=== PATIENT | male | born 1960 | race Caucasian/White ===

== ENCOUNTER → 2018-10-08 13:20 | Outpatient (CLI) | payer MEDICARE, MEDICAID, SELFPAY ==
--- NOTE | 2018-10-08 13:25 | XR_ITS ---
XR DEXA axial skeleton HISTORY: ITS.REASON: ABNORMAL FINDINGS ON CT SCAN ORDERING PHYSICIAN: Yi Boles PATIENT AGE: 58 years COMPARISON: None FINDINGS: The BMD measured at the Right femoral neck is 1.126 g/cm squared with a T score of 0.4. This is considered Normal according to the World Health Organization criteria. Fracture risk is Low. Recommend follow-up exam in 2 years. IMPRESSION: Normal bone density with low fracture risk
--- NOTE | 2018-10-08 13:54 | MR_ITS ---
MR hip RT wo/w con HISTORY: , Left hip pain and soreness Lytic lesion of the left hip evaluation ITS.REASON: ABNORMAL CT SCAN OF PELVIS ORDERING PHYSICIAN: Yipamella Boles PATIENT AGE: 58 years COMPARISON: 10/02/2018 TECHNIQUE: Routine multiplanar multiecho sequences are performed without and with contrast FINDINGS: Subcortical cystic changes involving the right femoral neck at approximately 11 mm. A small cystic areas also present in the left subcapital region of the femoral neck at 10 mm. In addition, there is a 17 x 17 mm lesion involving the left femoral neck anteriorly corresponding to the CT abnormality. This did appear to contain some internal matrix on CT. There is some heterogeneous signal intensity in this area on the T2-weighted images and the post enhanced images. This is hyperintense on T2 and hypointense on T1. This is well-circumscribed. Cannot adequately determine if this enhances as the T1 fat-suppressed pre enhanced images are also hyperintense as are the T1 post enhanced fat suppressed images. This is not felt to be enhancing significantly. Sagittal images were obtained only of the right hip and not the left hip. No soft tissue masses hip effusions or fractures or dislocations are evident. The prostate is mildly enlarged at 5.8 x 4.7 cm. IMPRESSION: Left femoral neck lytic lesion as described above. The lesion is well-circumscribed. There appears to be some internal matrix. This may represent an enchondroma.. Complex cyst is an additional consideration. There are benign-appearing cystic lesions of the right femoral neck and left femoral head as well. Sagittal images were only performed of the right hip and not the left hip where the main area of concern resides. Would recommend the patient return at no additional charge for repeat sagittal images of the left hip and also pre- and post enhanced NONFAT SAT T1 axial and coronal images to determine if this lesion enhances or not..
--- NOTE | 2018-10-08 15:08 | HMH.ITSHM ---
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 []BABY ASPIRIN TOPIRAMATE FLUOXETINE QUETIAPINE FUMARATE METOPROLOL PRAVASTATIN TAMSULOSIN ISOSORBIDE BUPROPION RANITIDINE LISINOPRIL TRAMADOL GABAPENTIN
== END ==
PROVIDERS: PCP Family Medicine; Visit Provider Nurse Practitioner Family
DX: R93.89 Abnormal findings on diagnostic imaging of other specified body structures (principal); M25.551 Pain in right hip; R93.5 Abnormal findings on diagnostic imaging of other abdominal regions, including retroperitoneum; M89.9 Disorder of bone, unspecified
CPT/HCPCS: 73723; 77080; A9576

== ENCOUNTER → 2018-10-16 09:33 | Outpatient (CLI) | payer MEDICARE, MEDICAID, SELFPAY | PROVIDERS: PCP Nurse Practitioner Family; Visit Provider Nurse Practitioner Family | DX: R93.6 Abnormal findings on diagnostic imaging of limbs (principal) ==

== ENCOUNTER → 2018-11-04 10:07 | Outpatient (CLI) | payer MEDICARE, MEDICAID, SELFPAY ==
--- NOTE | 2018-11-04 10:11 | XR_ITS ---
XR hip RT 2-3V w/pelvis HISTORY: ITS.REASON: Hip pain ORDERING PHYSICIAN: Abbey Núñez MD PATIENT AGE: 58 years COMPARISON: None FINDINGS: There is a 14 mm lobular lucency in the right femoral neck corresponding to the abnormality noted on the MRI and may represent a subcortical cyst. There are mild osteoarthritic changes of the right hip. No fracture or dislocation. IMPRESSION: Bilobular fairly well-circumscribed cystic lesion of the right femoral neck with osteoarthritic change of the right hip
--- NOTE | 2018-11-04 10:11 | XR_ITS ---
XR hip LT 2-3V w/pelvis HISTORY: Left hip pain, left hip lesion ITS.REASON: B/L Hip pain ORDERING PHYSICIAN: Abbey Núñez MD PATIENT AGE: 58 years COMPARISON: 09/22/2018 and 10/08/2018 FINDINGS: Patient has a known lytic lesion of left femoral neck. This is not well circumscribed complaint and disc appear to contain some internal matrix. This measures approximately 2 cm. There is some minimal osteoarthritic change of the left hip IMPRESSION: Left hip lesion is not well-defined on the plain film. To have some internal matrix suggesting a chondromatous type lesion
== END ==
PROVIDERS: PCP Family Medicine; Visit Provider Orthopaedic Surgery
DX: M25.551 Pain in right hip (principal); M25.552 Pain in left hip
CPT/HCPCS: 73502

== ENCOUNTER → 2018-11-05 08:53 | Outpatient (CLI) | payer MEDICARE, MEDICAID, SELFPAY ==
--- NOTE | 2018-11-05 09:01 | NM_ITS ---
NM bone scan whole body CLINICAL INDICATION: Left hip pain, left femoral neck lesion ITS.REASON: ABNORMAL MRI SCAN ORDERING PHYSICIAN: Yi Boles PATIENT AGE: 58 years Comparison: 11/04/2018, 10/08/2018 TECHNIQUE: Delayed Whole-body images are obtained following the intravenous administration of 24.9 mCi technetium MDP. SPECT images are also performed. FINDINGS: There are small foci of slight increase activity involving both femoral necks corresponding to the abnormalities noted on the MRI of the hip. In addition, scattered foci of increased activity are present in the shoulders, sternoclavicular joint, first costosternal joint, right aspect of the lower sternum, and in the knees as well as the lumbar spine at the lumbosacral junction. SPECT images were performed of the pelvis showing a small focal area of increase activity in the left femoral neck corresponding to the bony lesion in question. There is slight increase activity involving the right femoral neck superiorly but less intense as compared to the left side there is increased activity also noted in the SI joints. IMPRESSION: 1. The lesion of the left hip does show mild to moderate increase activity. An enchondroma or low-grade chondrosarcoma is a consideration. Close follow-up is recommended. 2. The lesion of the right hip only shows mild increase activity. This lesion however does show complex properties on the MRI and close follow-up is also recommended.
== END ==
PROVIDERS: PCP Family Medicine; Visit Provider Nurse Practitioner Family
DX: R93.7 Abnormal findings on diagnostic imaging of other parts of musculoskeletal system (principal)
CPT/HCPCS: 78306; A9503

== ENCOUNTER → 2019-08-02 13:14 | Outpatient (POV) | payer MEDICARE, MEDICAID, SELFPAY | PROVIDERS: PCP Nurse Practitioner Family; Visit Provider Nurse Practitioner Family | DX: Z00.00 Encounter for general adult medical examination without abnormal findings (principal) ==

== ENCOUNTER → 2022-12-11 23:30 | Outpatient (CLI) | payer MEDICARE, MEDICAID, SELFPAY ==
[2022-12-11 17:26] LABS: Alanine Aminotransferase 28 U/L (12-78); Albumin Level 3.9 g/dl (3.5-5.0); Albumin/Globulin Ratio 1.4 (1.1-1.8); Alkaline Phosphatase 78 U/L (38-126); Anion Gap 5.6 mEq/L (5-15); Aspartate Amino Transferase 30 U/L (17-59); Bilirubin,Total 0.4 mg/dl (0.2-1.3); Blood Urea Nitrogen 20 mg/dl (9-20); Calcium 8.8 mg/dl (8.4-10.2); Carbon Dioxide 27 mmol/L (22.0-30.0); Chloride 110 mmol/L (98-107); Chol/HDL Ratio 4.6 (1-3.5); Cholesterol 208 mg/dl (140-200); Estimated Glomerular Filt Rate 47 ml/min (>60); GFR (African American) 57 ML/MIN (>60); Globulin 2.8 g/dL (1.3-3.2); Glucose 95 mg/dl (74-100); HDL Cholesterol 45 mg/dl (40-60); Potassium 4.6 mmoL/L (3.5-5.1); Sodium 138 mmol/L (136-145); Total Protein,Serum 6.7 g/dl (6.3-8.2); Triglycerides 105 mg/dl (30-150); VLDL Cholesterol 21 mg/dL (0-40)
[2022-12-11 17:27] LABS: Basophils # 0.1 K/mm3 (0-0.2); Basophils % 0.8 % (0.1-2.0); Eosinophils # 0.4 K/mm3 (0.0-0.4); Eosinophils % 7.6 % (0.1-12.0); Hematocrit 39.9 % (42.0-52.0); Hemoglobin 12.6 g/dL (14.1-18.0); Lymphocytes # 1.3 K/mm3 (0.7-4.5); Lymphocytes % 21.8 % (10-50); Mean Corpuscular HGB Conc 31.6 g/dL (31.8-35.4); Mean Corpuscular Hemoglobin 28.2 pg (27.0-31.2); Mean Corpuscular Volume 89.3 fl (80-94); Mean Platelet Volume 8.8 fl (7.4-10.4); Monocytes # 0.4 K/mm3 (0.1-1.0); Monocytes % 7.6 % (1.7-9.3); Neutrophils # 3.6 K/mm3 (1.8-7.8); Neutrophils % 62.2 % (37.0-80.0); Platelet Count 342 K/mm3 (142-424); Red Blood Count 4.47 M/mm3 (4.60-6.20); Red Cell Distribution Width 14.3 % (11.5-17.5); White Blood Count 5.7 K/mm3 (4.8-10.8)
[2022-12-11 17:37] LABS: Direct LDL Cholesterol 120.53 mg/dL (100-129)
[2022-12-11 17:56] LABS: Thyroid Stimulating Hormone 3.21 uIU/mL (0.465-4.68)
== END ==
PROVIDERS: PCP Family Medicine; Visit Provider Family Medicine
DX: I10 Essential (primary) hypertension (principal); R53.83 Other fatigue; Z00.00 Encounter for general adult medical examination without abnormal findings; R30.0 Dysuria
CPT/HCPCS: 80053; 80061; 84443; 85025; 87086

== ENCOUNTER 2022-12-24 02:20 | Emergency (ER) | payer MEDICARE, MEDICAID, SELFPAY ==
[2022-12-24 02:31] VITALS: BP 142/71; PULSE 82; RESP 18; TEMP 36.4; O2SAT 98; BMI 48.2
[2022-12-24 02:33] VITALS: BMI 48.2
[2022-12-24 02:48] LABS: Basophils # 0.1 K/mm3 (0-0.2); Basophils % 1.5 % (0.1-2.0); Eosinophils # 0.5 K/mm3 (0.0-0.4); Eosinophils % 6.9 % (0.1-12.0); Hematocrit 40.5 % (42.0-52.0); Hemoglobin 12.8 g/dL (14.1-18.0); Lymphocytes # 2.4 K/mm3 (0.7-4.5); Mean Corpuscular HGB Conc 31.6 g/dL (31.8-35.4); Mean Corpuscular Hemoglobin 27.6 pg (27.0-31.2); Mean Corpuscular Volume 87.6 fl (80-94); Monocytes # 0.5 K/mm3 (0.1-1.0); Neutrophils # 3.1 K/mm3 (1.8-7.8); Neutrophils % 46.6 % (37.0-80.0); Platelet Count 353 K/mm3 (142-424); Red Blood Count 4.63 M/mm3 (4.60-6.20); Red Cell Distribution Width 14.4 % (11.5-17.5); White Blood Count 6.6 K/mm3 (4.8-10.8)
[2022-12-24 02:50] LABS: Alanine Aminotransferase 35 U/L (12-78); Albumin Level 4.4 g/dl (3.5-5.0); Albumin/Globulin Ratio 1.4 (1.1-1.8); Alkaline Phosphatase 77 U/L (38-126); Aspartate Amino Transferase 46 U/L (17-59); Bilirubin,Total 0.3 mg/dl (0.2-1.3); Blood Urea Nitrogen 25 mg/dl (9-20); Calcium 8.6 mg/dl (8.4-10.2); Carbon Dioxide 24 mmol/L (22.0-30.0); Chloride 106 mmol/L (98-107); Creatinine Clearance Estimated 30 mL/min (50-200); Estimated Glomerular Filt Rate 29 ml/min (>60); GFR (African American) 35 ML/MIN (>60); Globulin 3.1 g/dL (1.3-3.2); Glucose 103 mg/dl (74-100); Magnesium 2.1 mg/dl (1.6-2.3); Sodium 137 mmol/L (136-145); Total Protein,Serum 7.5 g/dl (6.3-8.2)
[2022-12-24 02:57] LABS: C-Reactive Protein 3.7 mg/L (0-4)
[2022-12-24 03:00] VITALS: BP 142/69; PULSE 74; O2SAT 97
[2022-12-24 03:02] LABS: NT Pro Brain Natriuretic Pep. 22.8 pg/mL (0-125)
[2022-12-24 03:09] LABS: Procalcitonin 0.054 ng/mL (0.0-2.0)
--- NOTE | 2022-12-24 03:15 | PC.NURSE ---
Rounded on patient, helped with concerns voiced.
[2022-12-24 03:21] LABS: Erythrocyte Sedimentation Rate 22 mm/hr (0-20)
[2022-12-24 03:31] VITALS: BP 132/68; PULSE 82; O2SAT 98
[2022-12-24 04:04] VITALS: BP 130/72; PULSE 78; RESP 19; TEMP 36.6; O2SAT 96
--- NOTE | 2022-12-24 04:19 | HMH.EDGENADL ---
Discharge Plan Disposition Patient Disposition: Home, Self-Care Chief Complaint: PAIN Prescriptions Prescriptions: No Action albuterol sulfate 90 mcg/actuation HFA aerosol inhaler 2 puff IH Q4-6H PRN (Reason: asthma) bupropion HCl [Wellbutrin SR] 150 mg tablet sustained-release 12 hr 150 mg PO BID fluoxetine 40 mg capsule 40 mg PO DAILY omeprazole 20 mg capsule,delayed release(DR/EC) 20 mg PO BID 30 Days Qty: 60 2RF tamsulosin 0.4 mg capsule 0.4 mg PO HS 30 Days Qty: 30 2RF lisinopril 10 mg tablet 10 mg PO BID 30 Days Qty: 60 2RF quetiapine 300 MG tablet 300 mg PO HS aspirin 81 MG tablet,delayed release (DR/EC) 81 mg PO DAILY topiramate 100 mg tablet 100 mg PO BID pravastatin 40 mg tablet 40 mg PO DAILY Rx Instructions: TAKE 1 TABLET BY MOUTH EVERY DAY sulfamethoxazole-trimethoprim [Bactrim DS] 800-160 mg tablet 1 tab PO BID diclofenac potassium 50 mg tablet 50 mg PO DAILY Rx Instructions: TAKE 1 TABLET 2 TIMES EACH DAY metoprolol succinate 25 mg tablet extended release 24 hr 25 mg PO DAILY Label Comments: TAKE 1 2 TABLET ONE TIME EACH DAY Referrals Follow up/Referrals: Miguel Remy MD [Primary Care Provider] - See instructions Clinical Impressions Clinical Impression: MARIA DEL CARMEN (acute kidney injury), Muscle spasm of right lower extremity Instructions Patient Instructions: DI for Acute Pain -- Adult Discharge ED Provider: Kayla (ED)[facility] Adult HPI General Chief complaint: PAIN Stated complaint: leg spasms Time Seen by Provider: 12/24/22 04:00 Mode of Arrival: Wheelchair Source of Information: Patient and Medical Record Limitations: No Limitations Description of Symptoms (Recalled from ER Triage Doc. by RN): Pt arrived to ER via wheelchair. Pt [facility] visiting his brother who is inpatient upstairs when his legs began to have muscle spasms in his calves. Pt states he woke up screaming and alarmed the staff who brought him to the ER for evaluation. Patient does have a history of muscles spasms but states that they've been getting worse for the last several days. Denies any injury, reports that his right calf is more severe than his left. Patient does report having difficulty urinating within the last few weeks. States he saw his pcp who gave him an antibiotic for an infected prostate. States that he still have 2 days remaining on his antibiotics. History of Present Illness HPI narrative: acute lower leg pain with hx of same but worse today no injury and has sleep apnea - no vomiting or diarrhea Onset (ago): hour(s) Location: lower extremity Severity: moderate Associated symptoms: denies other symptoms Related Data Home Medications Medication Instructions Recorded Confirmed aspirin 81 mg tablet,delayed 81 mg PO DAILY Heart disease 07/28/18 12/24/22 release quetiapine 300 mg tablet 300 mg PO HS sleep 07/28/18 12/24/22 albuterol sulfate 90 mcg/actuation 2 puff inhalation Q4-6H PRN asthma 05/21/22 12/24/22 aerosol inhaler bupropion HCl 150 mg tablet,12 hr 150 mg PO BID depression 05/21/22 12/24/22 sustained-release (Wellbutrin SR) fluoxetine 40 mg capsule 40 mg PO DAILY depression 05/21/22 12/24/22 topiramate 100 mg tablet 100 mg PO BID Headache 05/21/22 12/24/22 diclofenac potassium 50 mg tablet 50 mg PO DAILY Arthritis 12/24/22 12/24/22 metoprolol succinate 25 mg 25 mg PO DAILY Hypertension 12/24/22 12/24/22 tablet,extended release 24 hr pravastatin 40 mg tablet 40 mg PO DAILY High cholesterol 12/24/22 12/24/22 sulfamethoxazole 800 1 tab PO BID prostatitis 12/24/22 12/24/22 mg-trimethoprim 160 mg tablet (Bactrim DS) Previous Rx's Medication Instructions Recorded omeprazole 20 mg capsule,delayed 20 mg PO BID GERD 30 days #60 caps 10/25/22 release tamsulosin 0.4 mg capsule 0.4 mg PO HS prostate 30 days #30 10/25/22 caps lisinopril 10 mg tablet 10
--- NOTE | 2022-12-24 05:23 | PC.NURSE ---
I was at pt bedside reviewing his medication list and the new changes: Stop Bactrim, Diclofenac, and limit Lisinopril to 1x daily instead of BID. He is instructed to contact Dr. Remy later today for a follow up.
== END 2022-12-24 05:33 | disposition home or self-care (01) ==
PROVIDERS: Emergency Provider Emergency Medicine; PCP Family Medicine
DX: N17.9 Acute kidney failure, unspecified (principal); M62.831 Muscle spasm of calf; N40.0 Benign prostatic hyperplasia without lower urinary tract symptoms; I25.10 Atherosclerotic heart disease of native coronary artery without angina pectoris; F32.A Depression, unspecified; J44.9 Chronic obstructive pulmonary disease, unspecified; K44.9 Diaphragmatic hernia without obstruction or gangrene; E78.5 Hyperlipidemia, unspecified; I10 Essential (primary) hypertension; G43.909 Migraine, unspecified, not intractable, without status migrainosus; R91.8 Other nonspecific abnormal finding of lung field; R56.9 Unspecified convulsions; Z90.49 Acquired absence of other specified parts of digestive tract; Z80.9 Family history of malignant neoplasm, unspecified; Z83.3 Family history of diabetes mellitus; Z82.49 Family history of ischemic heart disease and other diseases of the circulatory system
CPT/HCPCS: 80053; 83735; 83880; 84145; 84550; 85025; 85651; 86140; 96361; 96374; 96375; 99284; 99285; J0131

== ENCOUNTER → 2022-12-30 11:15 | Outpatient (CLI) | payer MEDICARE, MEDICAID, SELFPAY ==
[2022-12-30 17:09] LABS: Chloride 107 mmol/L (98-107); Sodium 139 mmol/L (136-145)
[2022-12-30 17:10] LABS: Potassium 4.8 mmoL/L (3.5-5.1)
[2022-12-30 17:12] LABS: Blood Urea Nitrogen 27 mg/dl (9-20); Estimated Glomerular Filt Rate 44 ml/min (>60); GFR (African American) 53 ML/MIN (>60)
[2022-12-30 17:13] LABS: Anion Gap 10.8 mEq/L (5-15); Calcium 8.9 mg/dl (8.4-10.2); Carbon Dioxide 26 mmol/L (22.0-30.0); Glucose 91 mg/dl (74-100)
[2022-12-30 17:26] LABS: Basophils % 0.5 % (0.1-2.0); Eosinophils # 0.3 K/mm3 (0.0-0.4); Eosinophils % 4.7 % (0.1-12.0); Hematocrit 39.8 % (42.0-52.0); Hemoglobin 12.4 g/dL (14.1-18.0); Lymphocytes # 1.7 K/mm3 (0.7-4.5); Lymphocytes % 26.9 % (10-50); Mean Corpuscular HGB Conc 31.2 g/dL (31.8-35.4); Mean Corpuscular Hemoglobin 27.2 pg (27.0-31.2); Mean Corpuscular Volume 87.2 fl (80-94); Mean Platelet Volume 8.8 fl (7.4-10.4); Monocytes # 0.6 K/mm3 (0.1-1.0); Neutrophils # 3.7 K/mm3 (1.8-7.8); Neutrophils % 58.9 % (37.0-80.0); Platelet Count 323 K/mm3 (142-424); Red Blood Count 4.56 M/mm3 (4.60-6.20); Red Cell Distribution Width 14.7 % (11.5-17.5); White Blood Count 6.3 K/mm3 (4.8-10.8)
== END ==
PROVIDERS: PCP Family Medicine; Visit Provider Family Medicine
DX: I10 Essential (primary) hypertension (principal); N17.9 Acute kidney failure, unspecified
CPT/HCPCS: 80048; 85025

== ENCOUNTER → 2023-01-13 10:50 | Outpatient (CLI) | payer MEDICARE, MEDICAID, SELFPAY ==
[2023-01-13 17:35] LABS: Chloride 109 mmol/L (98-107); Potassium 5.5 mmoL/L (3.5-5.1); Sodium 142 mmol/L (136-145)
[2023-01-13 17:38] LABS: Blood Urea Nitrogen 20 mg/dl (9-20); Estimated Glomerular Filt Rate 36 ml/min (>60); GFR (African American) 43 ML/MIN (>60)
[2023-01-13 17:39] LABS: Calcium 9.4 mg/dl (8.4-10.2); Glucose 114 mg/dl (74-100)
[2023-01-13 17:44] LABS: Anion Gap 12.5 mEq/L (5-15); Carbon Dioxide 26 mmol/L (22.0-30.0)
== END ==
PROVIDERS: PCP Family Medicine; Visit Provider Family Medicine
DX: N17.9 Acute kidney failure, unspecified (principal)
CPT/HCPCS: 80048

== ENCOUNTER → 2023-07-02 08:19 | Outpatient (CLI) | payer MEDICARE, MEDICAID, SELFPAY ==
[2023-06-13 16:39] LABS: Basophils % 0.3 % (0.1-2.0); Eosinophils # 0.4 K/mm3 (0.0-0.4); Eosinophils % 6.6 % (0.1-12.0); Hematocrit 39.5 % (42.0-52.0); Hemoglobin 12.4 g/dL (14.1-18.0); Lymphocytes # 1.5 K/mm3 (0.7-4.5); Lymphocytes % 24.7 % (10-50); Mean Corpuscular HGB Conc 31.3 g/dL (31.8-35.4); Mean Corpuscular Hemoglobin 26.1 pg (27.0-31.2); Mean Corpuscular Volume 83.4 fl (80-94); Mean Platelet Volume 8.8 fl (7.4-10.4); Monocytes # 0.5 K/mm3 (0.1-1.0); Monocytes % 7.7 % (1.7-9.3); Neutrophils # 3.6 K/mm3 (1.8-7.8); Neutrophils % 60.7 % (37.0-80.0); Platelet Count 301 K/mm3 (142-424); Red Blood Count 4.74 M/mm3 (4.60-6.20); Red Cell Distribution Width 16.3 % (11.5-17.5)
[2023-06-13 17:04] LABS: Alanine Aminotransferase 28 U/L (12-78); Albumin Level 4.6 g/dl (3.5-5.0); Albumin/Globulin Ratio 1.4 (1.1-1.8); Alkaline Phosphatase 87 U/L (38-126); Aspartate Amino Transferase 29 U/L (17-59); Bilirubin,Total 0.3 mg/dl (0.2-1.3); Blood Urea Nitrogen 21 mg/dl (9-20); Calcium 9.7 mg/dl (8.4-10.2); Carbon Dioxide 26 mmol/L (22.0-30.0); Chloride 107 mmol/L (98-107); Chol/HDL Ratio 4.8 (1-3.5); Cholesterol 221 mg/dl (140-200); Estimated Glomerular Filt Rate 38 ml/min (>60); GFR (African American) 46 ML/MIN (>60); Globulin 3.4 g/dL (1.3-3.2); Glucose 91 mg/dl (74-100); HDL Cholesterol 46 mg/dl (40-60); Sodium 146 mmol/L (136-145); Triglycerides 143 mg/dl (30-150); VLDL Cholesterol 29 mg/dL (0-40)
[2023-06-13 17:15] LABS: Direct LDL Cholesterol 117.15 mg/dL (100-129)
[2023-06-13 17:34] LABS: Prostate Specific Ag Screen 6.1 ng/ml (0.0-4.0); Thyroid Stimulating Hormone 2.59 uIU/mL (0.465-4.68)
[2023-06-13 17:41] LABS: Hemoglobin A1C 5.8 % (4.0-6.0)
== END ==
PROVIDERS: PCP Family Medicine; Visit Provider Family Medicine
DX: I10 Essential (primary) hypertension (principal); R73.9 Hyperglycemia, unspecified; E78.5 Hyperlipidemia, unspecified; Z00.00 Encounter for general adult medical examination without abnormal findings; R53.83 Other fatigue; Z12.5 Encounter for screening for malignant neoplasm of prostate
CPT/HCPCS: 80053; 80061; 83036; 84443; 85025; G0103

== ENCOUNTER 2024-03-22 10:35 | Outpatient (CLI) | payer MEDICARE, MEDICAID, SELFPAY ==
[2024-03-22 16:42] LABS: Basophils % 0.9 % (0.1-2.0); Eosinophils # 0.3 K/mm3 (0.0-0.4); Eosinophils % 6.9 % (0.1-12.0); Hematocrit 34.5 % (42.0-52.0); Hemoglobin 10.2 g/dL (14.1-18.0); Lymphocytes # 1.1 K/mm3 (0.7-4.5); Lymphocytes % 24.6 % (10-50); Mean Corpuscular HGB Conc 29.6 g/dL (31.8-35.4); Mean Corpuscular Hemoglobin 23.9 pg (27.0-31.2); Mean Corpuscular Volume 80.8 fl (80-94); Mean Platelet Volume 8.8 fl (7.4-10.4); Monocytes # 0.4 K/mm3 (0.1-1.0); Monocytes % 7.8 % (1.7-9.3); Neutrophils # 2.7 K/mm3 (1.8-7.8); Neutrophils % 59.8 % (37.0-80.0); Platelet Count 314 K/mm3 (142-424); Red Blood Count 4.27 M/mm3 (4.60-6.20); Red Cell Distribution Width 17.2 % (11.5-17.5); White Blood Count 4.6 K/mm3 (4.8-10.8)
[2024-03-22 16:51] LABS: Alanine Aminotransferase 25 U/L (12-78); Albumin Level 4.1 g/dl (3.5-5.0); Albumin/Globulin Ratio 1.5 (1.1-1.8); Alkaline Phosphatase 71 U/L (38-126); Anion Gap 12.9 mEq/L (5-15); Aspartate Amino Transferase 26 U/L (17-59); Bilirubin,Total 0.3 mg/dl (0.2-1.3); Blood Urea Nitrogen 20 mg/dl (9-20); Calcium 9.5 mg/dl (8.4-10.2); Carbon Dioxide 27 mmol/L (22.0-30.0); Chloride 108 mmol/L (98-107); Chol/HDL Ratio 4.7 (1-3.5); Cholesterol 192 mg/dl (140-200); Estimated Glomerular Filt Rate 38 ml/min (>60); GFR (African American) 46 ML/MIN (>60); Globulin 2.8 g/dL (1.3-3.2); Glucose 96 mg/dl (74-100); HDL Cholesterol 41 mg/dl (40-60); Potassium 4.9 mmoL/L (3.5-5.1); Sodium 143 mmol/L (136-145); Total Protein,Serum 6.9 g/dl (6.3-8.2); Triglycerides 92 mg/dl (30-150); VLDL Cholesterol 18 mg/dL (0-40)
[2024-03-22 17:03] LABS: Direct LDL Cholesterol 108.71 mg/dL (100-129)
== END 2024-03-22 23:59 | disposition home or self-care (01) ==
LOC: LAB.DROPOF 03-24 10:35
PROVIDERS: PCP Family Medicine; Visit Provider Family Medicine
DX: E78.5 Hyperlipidemia, unspecified (principal); I10 Essential (primary) hypertension; D64.9 Anemia, unspecified
CPT/HCPCS: 80053; 80061; 85025

== ENCOUNTER 2024-06-17 20:19 | Outpatient (CLI) | payer MEDICARE, MEDICAID, SELFPAY ==
[2024-06-17 21:33] LABS: Basophils % 0.7 % (0.1-2.0); Eosinophils # 0.3 K/mm3 (0.0-0.4); Eosinophils % 5.2 % (0.1-12.0); Hematocrit 35.1 % (42.0-52.0); Hemoglobin 10.2 g/dL (14.1-18.0); Lymphocytes # 1.4 K/mm3 (0.7-4.5); Lymphocytes % 27.6 % (10-50); Mean Corpuscular HGB Conc 29.1 g/dL (31.8-35.4); Mean Corpuscular Hemoglobin 23.3 pg (27.0-31.2); Mean Corpuscular Volume 80.2 fl (80-94); Mean Platelet Volume 9.6 fl (7.4-10.4); Monocytes # 0.4 K/mm3 (0.1-1.0); Monocytes % 8.2 % (1.7-9.3); Neutrophils % 58.3 % (37.0-80.0); Platelet Count 347 K/mm3 (142-424); Red Blood Count 4.38 M/mm3 (4.60-6.20); Red Cell Distribution Width 17.7 % (11.5-17.5); White Blood Count 5.1 K/mm3 (4.8-10.8)
[2024-06-17 22:01] LABS: Chloride 112 mmol/L (98-107); Potassium 5.2 mmoL/L (3.5-5.1); Sodium 142 mmol/L (136-145)
[2024-06-17 22:02] LABS: Alanine Aminotransferase 24 U/L (12-78); Albumin/Globulin Ratio 1.4 (1.1-1.8); Anion Gap 11.2 mEq/L (5-15); Aspartate Amino Transferase 24 U/L (17-59); Bilirubin,Total 0.4 mg/dl (0.2-1.3); Blood Urea Nitrogen 23 mg/dl (9-20); Calcium 9.2 mg/dl (8.4-10.2); Carbon Dioxide 24 mmol/L (22.0-30.0); Cholesterol 188 mg/dl (140-200); Estimated Glomerular Filt Rate 38 ml/min (>60); GFR (African American) 46 ML/MIN (>60); Globulin 2.9 g/dL (1.3-3.2); Glucose 101 mg/dl (74-100); Total Protein,Serum 6.9 g/dl (6.3-8.2); Triglycerides 112 mg/dl (30-150); VLDL Cholesterol 22 mg/dL (0-40)
[2024-06-17 22:03] LABS: Alkaline Phosphatase 75 U/L (38-126); Chol/HDL Ratio 4.4 (1-3.5); HDL Cholesterol 43 mg/dl (40-60)
[2024-06-17 22:40] LABS: Direct LDL Cholesterol 99.68 mg/dL (100-129); Thyroid Stimulating Hormone 2.58 uIU/mL (0.465-4.68)
== END 2024-06-17 23:59 | disposition home or self-care (01) ==
LOC: LAB.DROPOF 20:22
PROVIDERS: PCP Family Medicine; Visit Provider Family Medicine
DX: I25.10 Atherosclerotic heart disease of native coronary artery without angina pectoris (principal); E78.5 Hyperlipidemia, unspecified; I10 Essential (primary) hypertension
CPT/HCPCS: 80050; 80053; 80061; 84443; 85025

== ENCOUNTER 2025-05-16 10:00 | Outpatient (CLI) | payer MEDICARE, MEDICAID, SELFPAY ==
[2025-05-16 17:14] LABS: Hematocrit 27.9 % (42.0-52.0); Hemoglobin 7.3 g/dL (14.1-18.0); Immature Granulocytes % 0.8 %; Mean Corpuscular HGB Conc 26.2 g/dL (31.8-35.4); Mean Corpuscular Hemoglobin 18.2 pg (27.0-31.2); Mean Corpuscular Volume 69.6 fl (80-94); Nucleated Red Blood Cells % 0.3 %; Platelet Count 405 K/mm3 (142-424); Red Blood Count 4.01 M/mm3 (4.60-6.20); Red Cell Distribution Width-SD 51.5 fL; White Blood Count 6.5 K/mm3 (4.8-10.8)
[2025-05-16 18:47] LABS: Albumin Level 3.8 g/dl (3.5-5.0); Chloride 107 mmol/L (98-107); Potassium 5.2 mmoL/L (3.5-5.1); Sodium 138 mmol/L (136-145)
[2025-05-16 18:50] LABS: Alanine Aminotransferase 17 U/L (12-78); Albumin/Globulin Ratio 1.1 (1.1-1.8); Alkaline Phosphatase 66 U/L (38-126); Anion Gap 12.2 mEq/L (5-15); Aspartate Amino Transferase 25 U/L (17-59); Bilirubin,Total 0.2 mg/dl (0.2-1.3); Blood Urea Nitrogen 26 mg/dl (9-20); Calcium 9.3 mg/dl (8.4-10.2); Carbon Dioxide 24 mmol/L (22.0-30.0); Cholesterol 205 mg/dl (140-200); Creatinine,Serum 1.90 mg/dl (0.66-1.25); Estimated Glomerular Filt Rate 36 ml/min (>60); GFR (African American) 43 ML/MIN (>60); Globulin 3.4 g/dL (1.3-3.2); Glucose 77 mg/dl (74-100); Total Protein,Serum 7.2 g/dl (6.3-8.2); Triglycerides 100 mg/dl (30-150)
[2025-05-16 18:51] LABS: HDL Cholesterol 44 mg/dl (40-60)
[2025-05-16 19:38] LABS: Hepatitis C Ab Qual. W/ RFX NEGATIVE (Negative)
[2025-05-17 06:09] LABS: Hepatitis B Surface Antigen Negative (Negative)
--- OUTSIDE RECORDS SUMMARY | 2025-05-17 12:27 | XMS_ITS | Clinical Summary ---
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
--- OUTSIDE RECORDS SUMMARY | 2025-05-17 12:27 | XMS_ITS | Clinical Summary ---
Author Organization [facility] Address [address] [place] [address] Care Team Providers Care Film Cutter Name Role Phone Miguel Remy MD Primary Care Provider [phone] Allergies Active Allergy Reactions Criticality Noted Date Comments Pseudoephedrine Hives High 11/04/2018 Medications QUEtiapine (SEROquel) 300 MG tablet 05/14/2023 Active diclofenac (VOLTAREN) 50 MG EC tablet 05/14/2023 Active tamsulosin (FLOMAX) 0.4 MG capsule 24 hr capsule 05/05/2023 Active omeprazole (priLOSEC) 20 MG capsule 05/05/2023 Active FLUoxetine (PROzac) 40 MG capsule 05/14/2023 Active albuterol sulfate HFA 108 (90 Base) MCG/ACT inhaler 03/12/2023 Act manuel aspirin 81 MG EC tablet Take 1 tablet by mouth Daily. Active topiramate (TOPAMAX) 100 MG tablet Take 1 tablet by mouth 2 (Two) Times a Day. Active cefdinir (OMNICEF) 300 MG capsule Take 1 capsule every 12 hours by oral route for 7 days. 11/18/2023 Active buPROPion XL (WELLBUTRIN XL) 150 MG 24 hr tablet TAKE 2 TABLETS IN THE MORNING, AND TAKE 1 TABLET AT NOON 03/26/2024 Active sildenafil (VIAGRA) 100 MG tablet TAKE 1 TABLET 1 TIME EACH DAY NEEDED 05/21/2024 Active sertraline (ZOLOFT) 100 MG tablet Take 1 tablet by mouth Daily. 02/22/2025 Active lisinopril (PRINIVIL,ZESTR IL) 10 MG tablet Take 1 tablet by mouth Daily. 90 tablet 1 03/02/2025 Active metoprolol succinate XL (TOPROL-XL) 25 MG 24 hr tablet Take 1 tablet by mouth Daily. 90 tablet 1 03/02/2025 Active pravastatin (PRAVACHOL) 40 MG tablet Take 1 tablet by mouth Every Night. 90 tablet 1 03/02/2025 Active Active Problems Problem Noted Date Diagnosed Date Pulmonary hypertension 03/02/2025 Assessment & Plan (03/02/2025 2:55 PM EDT): Update echo at follow-up Pulmonary nodules 05/27/2024 Seizure 05/27/2024 Cardiomegaly 11/27/2023 Assessment & Plan (03/02/2025 2:54 PM EDT): Update echo in 6 months Hypercholesterolemia 11/27/2023 Assessment & Plan (03/02/2025 2:54 PM EDT): LDL has improved and is now under 100. EKG is up todate. 06/17/2024 labs-sodium normal, potassium slightly elevated 5.2, BUN 23, creatinine elevated 1.8, EGFR low at 38, LFTs normal, cholesterol 188, HDL 43, LDL 99.68, triglycerides 112 SOB (shortness of breath) 05/22/2023 Assessment & Plan (03/02/2025 2:54 PM EDT): Chronic;stable. COPD as well. Update echo in 6 months Sleep apnea 05/22/2023 Assessment & Plan (03/02/2025 2:55 PM EDT): Intolerant to CPAP. Assessment & Plan (08/25/2024 4:17 PM EST): Benefiting from PAP therapy but having difficulty with using his machine over 4 hours. He would like a referral to ENT to discuss possible surgical interventions. Hypertensive disorder 02/12/2023 Assessment & Plan (03/02/2025 2:55 PM EDT): At goal. Labs and EKG are up to date. Assessment & Plan (08/25/2024 4:16 PM EST): Hypertension is stable and controlled Continue current treatment regimen. Dietary sodium restriction. Weight loss. Regular aerobic exercise. Ambulatory blood pressure monitoring. Blood pressure will be reassessed in 6 months. Environmental allergies 02/12/2023 Arthritis 02/12/2023 Chronic obstructive lung disease 02/12/2023 Depressive disorder 02/12/2023 Sensorineural hearing loss 11/04/2022 Encounters Date Type Department Care Team Description 03/02/2025 1:30 PM EDT Office Visit [facility] [address] [place], [place] [id number] Caitie Powell APRN Cardiomegaly; Pulmonary hypertension; Hypercholesterolemia; Primary hypertension; Obstructive sleep apnea syndrome; SOB (shortness of breath) 03/02/2025 Travel from Last 3 Months Immunizations Immunization Administration Dates Next Due Fluzone (or Fluarix & Flulav al for VFC) >6mos 09/06/2020(Deferred: Patient decision) Family History Medical History Relation Name Comments Colon cancer Father Heart attack Mother ICD Sister 2 Parret Heart attack Sister 3 Eugene pass from heart attack Relation Name Status Comments Brother 1 NKECHI Brother 2 Albino Brother 3 Alive Brother 4 Alive Brother 5 Alive Brother 6 Alive Brother 7 Alive Brother 8 Alive Brother 9 Alive Brother 10 Alive Father Mother Sister 1 Kacey Alive Sister 2 Carlito Alive Sister 3 Eugene Social History Tobacco Use Types Packs/Day Years Used Date Smoking Tobacco: Former Cigarettes 0.3 39 0 10/20/1973 - 2012 Passive Smoke Exposure: Past Smokeless Tobacco: Never Tobacco Cessation:Counseling Given: Not Answered Alcohol Use Standard Drinks/Week Comments Never 0 (1 standard drink = 0.6 oz pur e alcohol) Sex and Gender Information Value Date Recorded Sex Assigned at Not on file Legal Sex Male 9:55 AM EST Gender Identity Not on file Sexual Orientation Not on file Last Filed Vital Signs Vital Sign Reading Time Taken Comments Blood Pressure 128/64 03/02/2025 1:40 PM EDT Pulse 63 03/02/2025 1:40 PM EDT Temperature - - Respiratory Rate - - Oxygen Saturation 94% 03/02/2025 1:40 PM EDT Inhaled Oxygen Concentration - - Weight 138 kg (304 lb 14.4 oz) 08/25/2024 3:09 P M EST Height 170.2 cm (5' 7 ) 03/02/2025 1:40 PM EDT Body Mass Index 47.74 08/25/2024 3:09 PM EST Plan of Treatment Upcoming Encounters Date Type Department Care Team (Late st Contact Info) Description 08/30/2025 2:30 PM EST Ancillary Procedure [facility] [address] [place], [place] [id number] 08/30/2025 3:00 PM EST Office Visit [facility] [address] [place] [address] Caitie Powell APRN [address] [place] [address] Health Maintenance Due Date Last Done Comments LIPID PANEL 1958 Pneumococcal Vaccine 50+ (1 of 2 - PCV) 1977 TDAP/TD VACCINES (1 - Tdap) 1977 COLOGUARD 2003 COLON CANCER SCREENING 5 YEAR SIGMOIDOSCOPY 2003 COLONOSCOPY 2003 [address] CANCER SCREENING 2003 CT COLONOGRAPHY 2003 FECAL OCCULT BLOOD TEST 2003 FIT Testing (1 year) 2003 ZOSTER VACCINE (1 of 2) 2008 ANNUAL WELLNESS VISIT 05/20/2023 HEPATITIS C SCREENING 05/20/2023 AAA SCREEN ONCE 2023 COVID-19 Vaccine ( season) 2024 INFLUENZA VACCINE 07/20/2025 Procedures Procedure Name Priority Date/Time Associated Diagnosis Comments SCANNED - PULMONARY RESULTS 03/02/2025 from Last 3 Months Results * Pulmonary Results Scan (03/02/2025) Kiki Zuniga FOOD EQUIPMENT SERVICE TECHNICIAN PFT ORDERABLES Final Re sult from Last 3 Months Insurance [place] Member Subscriber Plan / Payer (Ef fective 2018-Present) Name:MayurArchana Relation to Subscriber:Self Name:Enrico Merchanta Payer ID:[id number] Group ID:Not on file Type:Not on file Address: [address] MEDICARE ADVANTAGE [facility] HMO NON PAR Care Teams Film Cutter Relationship Specialty Start Date End Date Miguel Remy MD [address] [place] [address] PCP - General Family Medicine 05/20/23
--- OUTSIDE RECORDS SUMMARY | 2025-05-17 12:27 | XMS_ITS | Data Portability ---
Author Organization [facility] ADMIN Address [address] [place] [id number] Care Team Providers Care [employer] Concierge Name Role Phone CHILO LARA Referring Provider [phone] Assessment No assessment recorded. Plan of Treatment Reminders Order Date Submit Date Provider Last Modified By Organization Details Last Modified Time Details Appointments OV EST 15 2024 01:15P Perico Sanderson Jr, MD Not available Not available Not available Lab urinalysi s, dipstick 2023 024 [email or web address], [address] [place] [address], [phone], 05/21/2024 14:28:13 culture, urine + sensitivi ty 2023 024 [email or web address] [facility] (Lab Registration) , [address] [place] [address] [place], [address], 11/20/2023 07:54:29 urinalysi s, dipstick 2023 024 [facility]5 [facility], [address] [place] [address], [phone], 11/13/2023 14:17:48 Referral None recorded. Procedures None recorded. Surgeries None recorded. Imaging None recorded. Medication Orders sildenafi l 100 mg tablet 2023 024 [employer], [address] [facility], [place], [place], [id number], 05/21/2024 20:17:04 cefdinir 300 mg capsule 2023 024 [email or web address] [facility], [address] [place], [address], 12/18/2023 12:45:41 clotrimaz ole-betam ethasone 1 %-0.05 % topical cream 2022 023 [facility], [address] [place], [address], 10/09/2023 12:46:45 Patient TargetsNo targets recorded. Patient InstructionsNo instructions recorded. Reason for Referral None Reported. Results Created Date Observation Date Name Description Value Unit Range Abnormal Flag Note LastModifiedBy Organization Detail LastModifiedTime 09/19/2009/19/2023 BASIC METAB OLIC PANEL sodium 142 mmol/ L 137-14 7 Not Available [facility] ([facility]Op [facility]) [address] [place] [address] [place], [address], 09/19/2023 12:01:02 09/19/20 23 09/19/2023 BASIC METAB OLIC PANEL potassium 4.5 mmol/ L 3.5-5. 1 Not Available [facility] (Pre-Op Clinic) [address] [place] [address] [place], [address], 09/19/2023 12:01:02 09/19/20 23 09/19/2023 BASIC METAB OLIC PANEL chloride 107 mmol/ L 98-110 Not Available [facility] (Pre-Op Clinic) [address] [place] [address] [place], [address], 09/19/2023 12:01:02 09/19/20 23 09/19/2023 BASIC METAB OLIC PANEL carbon dioxide 25 mmol/ L 21-30 Not Available [facility] (Pre-Op Clinic) [address] [place] [address] [place], [address], 09/19/2023 12:01:02 09/19/20 23 09/19/2023 BASIC METAB OLIC PANEL anion gap 10 mmol/ L 6-14 Not Available [facility] (Pre[facility]Op [facility]) [address] [place] [address] [place], [address], 09/19/2023 12:01:02 09/19/20 23 09/19/2023 BASIC METAB OLIC PANEL glucose 93 mg/dL 70-115 Not Available [facility] ([facility]Op [facility]) [address] [facility] [place], [address], 09/19/2023 12:01:02 09/19/20 23 09/19/2023 BASIC METAB OLIC PANEL BUN 22 mg/dL 9-20 high Not Available [facility] (Pre-Op Clinic) [address] [place] [address] [place], [address], 09/19/2023 12:01:02 09/19/20 23 09/19/2023 BASIC METAB OLIC PANEL creatinine 1.7 mg/dL 0.5-1. 5 high Not Available [facility] ([facility]Op [facility]) [address] [place] [address] [place], [address], 09/19/2023 12:01:02 09/19/20 23 09/19/2023 BASIC METAB OLIC PANEL BUN/creatini ne ratio 13 ratio 10-20 Not Available [facility] (Pre[facility]Op [facility]) [address] [place] [address] [place], [address], 09/19/2023 12:01:02 09/19/20 23 09/19/2023 BASIC METAB OLIC PANEL glom filtration rate 43 mL/mi n >60- low Not Available [facility] (Pre-Op Clinic) [address] [place] [address] [place], [address], 09/19/2023 12:01:02 09/19/20 23 09/19/2023 BASIC METAB OLIC PANEL osmolality (calculated) 298 mosmo l/kg 275-30 1 OSMOL ALITY IS A CALCU LATIO N UTILI ZING THE SERUM /PLAS MA SODIU M, GLUCO SE AND UREA NITRO GEN (BUN) LEVEL S. FOR THE MOST ACCUR ATE RESUL T A MEASU RED SERUM OSMOL ALITY IS SUGGE STED. Not Available [facility] ([facility]Op [facility]) [address] [place] [address] [place], [address], 09/19/2023 12:01:02 09/19/20 23 09/19/2023 BASIC METAB OLIC PANEL calcium 9.1 mg/dL 8.5-10 .8 Not Available [facility] ([facility]Op [facility]) [address] [place] [address] [place], [address], 09/19/2023 12:01:02 09/19/20 23 09/19/2023 BASIC METAB OLIC PANEL note aHnnah foster other peck noted testi ng perfo rmed at: [facility] [address] [place] [address] Saleem foster MD Not Available [facility] ([facility]Op [facility]) [address] [place] [address] [place], [address], 09/19/2023 12:01:02 11/13/19 24 11/13/2023 CULTU RE URINE W PRESU MP ID results [facility] 11-14 1255 [place] te:1 >100, 000 Colon y Count Gram Negat manuel Rods Not Available [facility] ([facility]Op [facility]) [address] [place] [address] [place], [address], 11/14/2023 12:57:18 11/13/19 24 11/13/2023 CULTU RE URINE W PRESU MP ID note Hannah foster other peck noted testi ng perfo rmed at: [facility] [address] [place] [address] Saleem foster MD Not Available [facility] ([facility]Op [facility]) [address] [place] [address] [place], [address], 11/14/2023 12:57:18 11/13/19 24 11/13/2023 CULTU RE URINE W PRESU MP ID culur ===== ===== ===== ===== ===== ===== ===== ===== ===== ===== ===== ===== ===== ===== ===== ===== ===== ===== ===== ===== ===== ===== ===== ===== CULTU RE NO.: [id number] Exam Statu s: Final Exam Type: CULTU RE URINE W PRESU ===== ===== ===== ===== ===== ===== ===== ===== ===== ===== ===== ===== ===== ===== ===== ===== ===== ===== ===== ===== ===== ===== ===== ===== Cultu re Repor t: Organ ism #01 Esche yulisa a coli (ESCC OL) Antib iotic s ESCCO L Achie vable Achie vable (01) Dosag e Serum Level Urine Level mcg/m l mcg/m l Amika joe <=8 S 007A Ampic illin >16 R 007A Ampic illin /Sulb actam >16/8 R 007A Aztre onam <=2 S 007A Cefep kait <=1 S 007A Cefta zidim e <=2 S 007A Ceftr iaxon e <=1 S 007A Cipro floxa joe <=0.2 5 S 007A CARBR S 007A Ertap enem <=0.2 5 S 007A ESBL NEG N 007A Genta micin >8 R 007A Levof loxac in <=0.5 S 007A Merop enem <=0.5 S 007A Nitro furan toin <=16 S 007A Piper acill in/Ta zobac <=2/4 S 007A Tetra cycli ne <=2 S 007A Tobra mycin 8 I 007A Trime thopr im/Peña lfame >38 R 007A AE 11-14 1255 [place] te:1 >100, 000 Colon y Count Gram Negat manuel Rods Not Available [facility]) [address], [address], 11/15/2023 06:01:54 11/13/19 24 11/13/2023 CULTU RE URINE W PRESU MP ID note Unles s other peck noted testi ng perfo rmed at: [facility] [address] [place] [address] Saleem foster MD Not Available [facility] ([facility]) [address] [place] [address] [place], [address], 11/15/2023 06:01:54 11/13/19 24 11/13/2023 urina lysis , dipst ick Leukocytes (reference range) trace Not Available [facility] [address] [place] [address], [address], 11/13/2023 12:09:48 11/13/19 24 11/13/2023 urina lysis , dipst ick Nitrite (reference range:) positi ve Not Available [facility] [address] [place] [address], [address], 11/13/2023 12:09:48 11/13/19 24 11/13/2023 urina lysis , dipst ick Urobilinogen (reference range) 0.[address] [facility] [address] [place] [address], [address], 11/13/2023 12:09:48 11/13/19 24 11/13/2023 urina lysis , dipst ick Protein (reference range) negati ve Not Available [facility] [address] [place] [address], [address], 11/13/2023 12:09:48 11/13/19 24 11/13/2023 urina lysis , dipst ick pH (reference range 5-8.5) 5.5 Not Available [facility] [address] [place] [address], [address], 11/13/2023 12:09:48 11/13/19 24 11/13/2023 urina lysis , dipst ick Blood (reference range:) negati ve Not Available [address], [address], 11/13/2023 12:09:48 11/13/19 24 11/13/2023 urina lysis , dipst ick Specific [place] (reference range) 1.030 Not Available [address], [address], 11/13/2023 12:09:48 11/13/19 24 11/13/2023 urina lysis , dipst ick Ketone (reference range) negati ve Not Available [address], [address], 11/13/2023 12:09:48 11/13/19 24 11/13/2023 urina lysis , dipst ick Bilirubin (reference range) negati ve Not Available [address], [address], 11/13/2023 12:09:48 11/13/19 24 11/13/2023 urina lysis , dipst ick Glucose (reference range) negati ve Not Available [address], [address], 11/13/2023 12:09:48 05/21/20 24 05/21/2024 urina lysis , dipst ick Leukocytes (reference range) negati ve Not Available [address], [address], 05/21/2024 11:53:30 05/21/20 24 05/21/2024 urina lysis , dipst ick Nitrite (reference range:) negati ve Not Available [address], [address], 05/21/2024 11:53:30 05/21/20 24 05/21/2024 urina lysis , dipst ick Urobilinogen (reference range) 0.2 Not Available [address], [address], 05/21/2024 11:53:30 05/21/20 24 05/21/2024 urina lysis , dipst ick Protein (reference range) negati ve Not Available [address], [address], 05/21/2024 11:53:30 05/21/20 24 05/21/2024 urina lysis , dipst ick pH (reference range 5-8.5) 6.0 Not Available [address], [address], 05/21/2024 11:53:30 05/21/20 24 05/21/2024 urina lysis , dipst ick Blood (reference range:) negati ve Not Available [address], [address], 05/21/2024 11:53:30 05/21/20 24 05/21/2024 urina lysis , dipst ick Specific [place] (reference range) 1.030 Not Available [address], [address], 05/21/2024 11:53:30 05/21/20 24 05/21/2024 urina lysis , dipst ick Ketone (reference range) negati ve Not Available [address], [address], 05/21/2024 11:53:30 05/21/20 24 05/21/2024 urina lysis , dipst ick Bilirubin (reference range) negati ve Not Available [facility] [address] [place] [address], [address], 05/21/2024 11:53:30 05/21/20 24 05/21/2024 urina lysis , dipst ick Glucose (reference range) negati ve Not Available [facility] [address] [place] [address], [address], 05/21/2024 11:53:30 05/21/20 24 05/21/2024 urina lysis , dipst ick Color (reference range: yellow-brown ) Yellow Not Available [facility] [address] [place] [address], [address], 05/21/2024 11:53:30 Result Notes None recorded. 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 Jessica Bal[place] 3 15:02:02 Mutism 13068653 Active Jessica Bal[place], [place] 3 15:02:02 Sensorineur al hearing loss 64778882 Active 2022 Donnylynnette Balderrama null, [place] 3 15:02:02 Hypertensiv e disorder 39518569 Active 2022 Adielsukhjinder Balderrama null, [place] [facility] [place] 3 15:02:02 Environment al allergy 852146268 Active 2022 Jessica torrez, ALISON Schumacher [facility] - [facility] & [place] 3 15:02:02 Arthritis 3024716 Active 2022 Jessica torrez, ALISON Schumacher [facility] & [place] 3 15:02:02 Depressive disorder 99247817 Active 2022 ALISON Armstrong [facility] & [place] 3 15:02:02 Chronic obstructive pulmonary disease 61659080 Active 2022 ALISON Armstrong [facility] & [place] 3 15:02:02 Obstructive sleep apnea syndrome 46529161 Active 2023 AILEEN BEJARANO MD [address] [place] [address], [address], [place], [address] [facility] ALISON Schumacher [place] [facility] [place] 4 12:03:53 Problem Notes None recorded. Procedures Surgical History Date Name Laterality Status Provider Name and Address Organization Details Recorded Time tonsillectomy completed Jessica Schumacher [place] [facility] [place] 02/12/2023 11:24:13 Imaging Results None recorded. Procedure Notes None recorded. Medical Equipment None Reported. Allergies Allergen ID Allergen Name Allergen Category Reaction Reaction Severity Criticality Documentation Date Start Date Code Code System Note Provider Name and Address Organization Details Recorded Time 033768 pseudoeph edrine Not available Not available Not available Not available 09/08/2023 8896 RxNorm Other react ions and sever ities : 'Adve rse react ion to subst ance' . ALISON Armstrong [facility] [place] [facility] [place] 3 15:01:51 84967 Sudafed medicatio n Not available Not available Not available 02/12/202388504 2 RxNorm ALISON Armstrong [facility] & [place] 3 11:22:35 93626 Substance with sulfonami de structure and antibacte rial mechanism of action (substanc e) medicatio n Not available Not available Not available 02/12/2023 26046 8003 SNOMED [employer] [facility] [place] - [place] - [place] & [place] 3 11:31:42 Medications Name Sig Start Date Stop Date Status Note LastModified by Organization Details LastModified Time fluoxetine 40 mg capsule TAKE 1 CAPSULE 1 TIME EACH DAY IN THE MORNING active Not Available Not Available No t Available cyclobenzap rine 10 mg tablet active Not Available Not Available Not Available bupropion HCl SR 150 mg tablet,12 hr sustained-r elease active Not Available Not Available Not Available nystatin 100,000 unit/mL oral suspension active Not Available Not Available N ot Available acetaminoph en 325 mg tablet 650 mg by oral route. 08/06 completed Not Available Not Available Not Available prednisone 10 mg tablet TAKE 4 TABLETS ON 10/01 TO 10/03. TAKE 2 TABLETS ON 10/04 TO 10/06. TAKE 1 TABLET ON 10/07 TO 10/09. 09/08 completed Not Available Not Available Not Available quetiapine 300 mg tablet TAKE 1 TABLET 1 TIME EACH DAY AT BEDTIME active Not Available Not Available No t Available sildenafil 50 mg tablet Take 1 tablet as needed by oral route. 05/21 completed Not Available Not Available Not Available azithromyci n 250 mg tablet TAKE 2 TABLETS ON THE FIRST DAY, THEN TAKE 1 TABLET EACH DAY ON THE NEXT 4 DAYS. 09/06 completed Not Available Not Available Not Available pravastatin 40 mg tablet TAKE 1 TABLET 1 TIME EACH DAY FOR HIGH CHOLESTER OL active Not Available Not Available No t Available hydrocodone 5 mg-acetamin ophen 325 mg tablet Take 1 tablet every 6 hours by oral route for 3 days. active Not Available Not Available No t Available sodium chloride 0.45 % intravenous solution 1000 mL by intraven. route. 08/06 completed Not Available Not Available Not Available acetaminoph en 300 mg-codeine 30 mg tablet TAKE 1 TABLET EVERY 4 HOURS NEEDED active Not Available Not Available No t Available sulfamethox azole 800 mg-trimetho prim 160 mg tablet active Not Available Not Available Not Available aspirin 81 mg tablet,rolf yed release 1 tablet by oral route. active Not Available Not Available No t Available tramadol 50 mg tablet TAKE 1 TABLET 3 TIMES EACH DAY NEEDED active Not Available Not Available No t Available sildenafil 100 mg tablet TAKE 1 TABLET 1 TIME EACH DAY NEEDED active Not Available Not Available No t Available butalbital- acetaminoph en-caffeine 50 mg-325 mg-40 mg tablet 2 tablets by oral route. 08/06 completed Not Available Not Available Not Available pravastatin 80 mg tablet TAKE 1 TABLET 1 TIME EACH DAY active Not Available Not Available No t Available tamsulosin 0.4 mg capsule TAKE 1 CAPSULE 1 TIME EACH DAY AT BEDTIME FOR PROSTATE active Not Available Not Available No t Available cephalexin 500 mg capsule TAKE 1 CAPSULE 4 TIMES EACH DAY active Not Available Not Available No t Available fluoxetine 20 mg tablet 1 tablet by oral route. active Not Available Not Available No t Available clotrimazol e-betametha sone 1 %-0.05 % topical cream APPLY A THIN FILM TO THE AFFECTED AREA OF SKIN 2 TIMES EACH DAY, IN THE MORNING AND IN THE EVENING, FOR 14 DAYS active Not Available Not Available No t Available lisinopril 10 mg tablet TAKE 1 TABLET 2 TIMES EACH DAY FOR HIGH BLOOD PRESSURE active Not Available Not Available No t Available diclofenac potassium 50 mg tablet TAKE 1 TABLET 2 TIMES EACH DAY active Not Available Not Available No t Available omeprazole 20 mg capsule,del ayed release TAKE 1 CAPSULE 2 TIMES EACH DAY FOR GERD active Not Available Not Available No t Available diclofenac sodium 75 mg tablet,rolf yed release active Not Available Not Available Not Available diclofenac sodium 50 mg tablet,rolf yed release TAKE 1 TABLET 2 TIMES EACH DAY FOR ARTHRITIS active Not Available Not Available No t Available metoprolol succinate ER 25 mg tablet,exte nded release 24 hr TAKE 1 TABLET 1 TIME EACH DAY FOR HIGH BLOOD PRESSURE active Not Available Not Available No t Available ibuprofen 600 mg tablet TAKE 1 TABLET 3 TIMES EACH DAY WITH FOOD OR MILK. active Not Available Not Available No t Available albuterol sulfate HFA 90 mcg/actuati on aerosol inhaler INHALE 2 PUFFS EVERY 4 TO 6 HOURS NEEDED FOR ASTHMA active Not Available Not Available No t Available dexamethaso ne 0.5 mg tablet TAKE 6 TABLETS EVERY 8 HOURS FOR 3 DOSES. THEN, TAKE 2 TABLETS EVERY 8 HOURS FOR 12 DOSES. active Not Available Not Available No t Available ondansetron 4 mg disintegrat ing tablet PLACE 1 TABLET UNDER THE TONGUE AND ALLOW TO DISSOLVE EVERY 6 HOURS NEEDED FOR NAUSEA AND VOMITING active Not Available Not Available No t Available cefdinir 300 mg capsule Take 1 capsule every 12 hours by oral route for 7 days. 2023 active Not Available Not Available Not Avai lable topiramate 100 mg tablet TAKE 1 TABLET 2 TIMES EACH DAY active Not Available Not Available No t Available Pneumovax-2 3 25 mcg/0.5 mL injection syringe 0.5 mL by injection route. 08/06 completed Not Available Not Available Not Available sodium chloride 0.9 % (flush) injection syringe 10 mL by injection route. 08/06 completed Not Available Not Available Not Available bupropion HCl XL 150 mg 24 hr tablet, extended release TAKE 2 TABLETS IN THE MORNING, AND TAKE 1 TABLET AT NOON. active Not Available Not Available No t Available Neosporin(n eo-kati-poly m) 3.5 mg-400 unit-5,000 unit top ointment packt 1 oliver by topical route. 2022 active Not Available Not Available Not Avai lable ondansetron HCl (PF) 4 mg/2 mL injection solution 4 mg by injection route. 08/06 completed Not Available Not Available Not Available omeprazole 20 mg tablet,rolf yed release 2 tablets by oral route. active Not Available Not Available No t Available Afluria Qd 2019- (36 mos up)(PF)60 mcg (15 mcg x4)/0.5 mL IM syringe 0.5 mL by intramusc . route. 08/06 completed Not Available Not Available Not Available Vitals Date Recorded Body height Body mass index (BMI) Body weight Body temperature Provider Name and Address Organization Details Last Updated DateTime 11/13/2023 170.18 cm 44.6 kg/m2 657658.83 g 97.6 [degF] Jessica ROSAS [facility] & [place] 11/13/2023 11:18:34 Date Recorded Body height Body mass index (BMI) Body weight Body temperature Provider Name and Address Organization Details Last Updated DateTime 05/21/2024 170.18 cm 44.6 kg/m2 485291.83 g 97.9 [degF] Tefanie Tacos [facility] & [place] 05/21/2024 10:53:42 Date Recorded Body height Body mass index (BMI) Body weight Body temperature Provider Name and Address Organization Details Last Updated DateTime 09/08/2023 170.18 cm 44.6 kg/m2 205601.83 g 98.2 [degF] Jessica ROSAS [facility] & [place] 09/08/2023 15:01:40 Date Recorded Body height Body mass index (BMI) Body weight Body temperature Oxygen saturation Oxygen saturation in Arterial blood by Pulse oximetry Provider Name and Address Organization Details Last Updated DateTime 170.18 cm 48.2 kg/m2 031590. 45 g 98.1 [degF] 98 % 98 % Yojana Hooper [facility] & [place] 13:26:28 Date Recorded Body height Body mass index (BMI) Body weight Body temperature Provider Name and Address Organization Details Last Updated DateTime 10/09/2023 170.18 cm 44.6 kg/m2 890508.83 g 98 [degF] Essie Moise [facility] & [place] 10/09/2023 11:03:08 Social History Question Answer Notes LastModified by [employer] Details LastModified Time Tobacco Smoking Status Never Smoker Jessica Balderrama [facility], [facility] & [place] 02/12/2023 11:24:02 Has Tobacco Cessation Counseling Been Provided? No Information not available 09/06/2024 Sex: Unknown Functional Status Question Answer Note LastModified by [employer] Details LastModified Time Do you use any illicit or recreational drugs? No Information not available 09/06/2024 Do you or have you ever used any other forms of tobacco or nicotine? No Information not available 09/06/2024 What is your level of alcohol consumption? None [email or web address] Information not available 02/12/2023 Mental Status None recorded. Family History Relationship Description Onset Age of this Age Resolved Age Notes LastModified by Organization Details LastModified Time Mother Myocardial infarction dec [email or web address] Not available 02/12 11:23:55 Father Myocardial infarction dec [email or web address] Not available 02/12 11:23:55 Brother Myocardial infarction dec [email or web address] Not available 02/12 11:23:55 Sister Myocardial infarction dec [email or web address] Not available 02/12 11:23:55 Medical History Condition Response Sleep Disorder Y Past Encounters Encounter ID Performer Location Encounter Start Date Encounter Closed Date Diagnosis/Indication Diagnosis SNOMED-CT Code Diagnosis ICD10 Code Diagnosis Note [id number] [facility] [place] [address] 09/11/2022 12:46:31 09/11/2022 13:16:11 Sensorineural hearing loss 78755639 H90.3 [id number] [facility] [address] [place] [address] 11/04/2022 16:07:00 11/04/2022 16:36:11 Sensorineural hearing loss 22699682 H90.3 [id number] Cezar Sanderson Jr, MD [facility] [address] [address] 02/12/2023 10:28:47 02/12/2023 12:11:10 Benign prostatic hyperplasia with outflow obstruction 232542296 N40.1 Patient with recent lower urinary tract symptoms that have resolved. His symptoms may have been secondary to prostatiti s as he currently has no urinary symptoms and is off of the previous alpha-bloc ker. Bladder scan indicates he is emptying out adequately . He is to return if his lower urinary tract symptoms should flare up. Erectile dysfunction 860 909604 F52.21 Patient with erectile dysfunctio n. We discussed treatment options and a prescripti on for sildenafil 50 mg was given. We discussed taking at least an hour before intercours e on an empty stomach and that sexual stimulatio n is still advised. [id number] Cezar Sanderson Jr, MD [facility] [address] [address] 07/04/2023 10:28:14 07/04/2023 11:56:35 Phimosis 707644370 N47.1 patient with penile phimosis. We discussed treatment options and he wishes to proceed with circumcisi on. The operative procedure and complicati ons discussed today. Prostate s pecific antigen above reference range 895569918 R97.20 patient with PSA of 6.1. Prostate exam shows no nodules. We discussed possible causes of an elevated PSA and treatment options. Would like to proceed with prostate biopsy and we will do this at the time of his circumcisi on. Lower urin ozzy tract symptoms due to benign prostatic hypertrophy [id number] N40.1 patient with symptoms of voiding small amounts but only voids every 3-4 hours. We discussed increasing his fluid intake. He does have history of chronic kidney disease with a creatinine 1.8. Bladder scan today is only 63 cc we will continue the tamsulosin . [id number] Cezar Sanderson Jr, MD [facility] [place]ARTINEZ [id number] 09/08/2023 14:27:53 09/08/2023 15:10:47 Redundant prepuce and phimosis [id number] N47.1 patient with recurrence of the phimotic foreskin. Due to patient's retracted phallus the foreskin closes up over the end as it heals. I discussed doing a dorsal slit incision to open the area up and hopefully it will not scar back down. He is amenable and will Set this up at his earliest convenienc e. Prostate s pecific antigen above reference range [id number] R97.20 patient with PSA of 6.1. recent prostate biopsy showed no evidence of cancer. We will continue to monitor his PSA. [id number] Cezar Sanderson Jr, MD [facility] [place]ARTINE[place] [id number] 08/21/2023 15:04:57 08/21/2023 15:23:46 Prostate specific antigen above reference range [id number] R97.20 patient with PSA of 6.1. prostate biopsies 2 weeks ago showed no evidence of cancer and patient was reassured. He is to continue follow-up for PSAs. Acquired phimosis [id number] 009 N47.1 patient status post circumcisi on that was very difficult 2 weeks ago. It was difficult to bring the head of the penis up through the foreskin as foreskin was very thick. I had to place a suture through the glans to the bring it up for retraction purposes. I was able to perform circumcisi on but there was not a lot of tissue below the pham of the glans to pull back and once it was pulled back it seemed pretty tight behind the head of the penis and I am surprised that foreskin was able to go back over the head of the penis. On exam today tissues are still healing and I told patient that he cannot have intercours e until he comes back to see me in 1 month. [id number] Cezar Sanderson Jr, MD [facility] [address] [place] [address] JULIANDONNY Hanks, [place] [id number] 10/09/2023 11:02:00 10/09/2023 11:39:29 Acquired phimosis [id number] N47.1 patient status post circumcisi on several weeks ago and then dorsal slit incision 3 weeks ago. Patient has a retracted penis as well which makes it difficult to get the penis up through the foreskin so it tends to retract back over the penis. On today's exam there is some raw tissue the dorsal aspect of foreskin. This is not infected but just appears to be healing tissue and suspect the tissue has healed after the chromic sutures dissolved. Patient will apply some antibiotic cream and try to keep it is dry as possible. [id number] Cezar Sanderson Jr, MD [facility] [address] [place] [address] [place] MARTINEZ [id number] 7 11/13/2023 11:08:47 11/13/2023 12:04:54 Urinary tract infectious disease [id number] N39.0 Acute urin ozzy tract infection [id number] N39.0 Patient with dysuria. Will culture urine patient placed on cefdinir. Acquired phimosis [id number] 009 N47.1 patient status post circumcisi on several weeks ago and then dorsal slit incision 3 weeks ago. Patient has a retracted penis as well which makes it difficult to get the penis up through the foreskin so it tends to retract back over the penis. the urethral meatus is visible through dorsal slit. We discussed that he needs to work at trying to pull the foreskin back keep it closing back over the end penis. [id number] Cezar Sanderson Jr, MD [facility] [address] [place] [address] JULIANDONNY Hanks [place] [id number] 05/21/2024 10:49:51 05/21/2024 11:54:26 Erectile dysfunction [id number] F52.21 Patient with erectile dysfunctio n. Patient has lost his prescripti on and will refill a prescripti on for sildenafil 100 mg today. We discussed how to take it which is at least an hour before intercours e and on an empty stomach. Acquired phimosis [id number] N47.1 patient status post dorsal slit procedure on September 19, 2023. Patient has a retracted penis as well which makes it difficult to get the penis up through the foreskin so it tends to retract back over the penis. the urethral meatus is visible through dorsal slit. There is a good cosmetic result. Patient is not able to visualize his penis due to his obesity and we discussed trying to practice in the mirror in retracting his foreskin so that he can direct his stream. History of urinary tract infection [id number] 107 Z87.440 patient is able to retract his foreskin and we discussed trying to retracted back so we can direct his stream and into make sure the end of the penis and foreskin are dry before letting it retract. Urinalysis today is unremarkab le. [id number] AILEEN BEJARANO MD [facility] [address] [place] [id number] 09/08/2024 13:16:05 09/08/2024 13:34:55 Obstructive sleep apnea syndrome [id number] G47.33 - AHI: 25.9 based on split night study from 12/21/21- BMI: 48.2- Unable to tolerate CPAP due to issues with breathing through his nose at night- Unfortunat alfred he is not a candidate for the Inspire Implant this time due to his BMI- We did discuss the use of flonase at night to help with his nasal breathing, however, he is not interested at this time Health Concerns Section Related Observation LastModified by Organization Detai ls LastModified Time None Recorded Concern Status LastModified by Organization Details LastModified Time None Recorded Advance Directives Directive None Recorded Payers Insurance Date Sequence Insurance Name Policy Number Policy Wilson Covered Member ID Wilson Member ID Guarantor Name 10/27/2019 1 [employer] (MEDICARE REPLACEMENT/AD VANTAGE - PPO) Archana Merchant [id number] Archana Merchant 01/10/2025 2 [facility] - FFS/TRADITIONA L Archana Merchant [id number] Archana Merchant 09/08/2024 1 [place] (MEDICARE REPLACEMENT HMO) [id number] Archanakimberly Merchant [id number] Archana Merchant 10/12/2024 1 [facility] (MEDICARE REPLACEMENT/AD VANTAGE - PPO) [id number] Archana Merchant [id number] Archana Merchant
== END 2025-05-16 23:59 | disposition home or self-care (01) ==
LOC: LAB.DROPOF 05-17 12:26
PROVIDERS: PCP Family Medicine; Visit Provider Family Medicine
DX: E78.5 Hyperlipidemia, unspecified (principal); I10 Essential (primary) hypertension; Z11.59 Encounter for screening for other viral diseases; Z11.4 Encounter for screening for human immunodeficiency virus [HIV]
CPT/HCPCS: 80053; 80061; 80074; 85025; 87340; 87389

== ENCOUNTER 2025-08-30 11:30 | Outpatient (CLI) | payer MEDICARE, MEDICAID, SELFPAY ==
[2025-08-30 17:52] LABS: Total Iron Binding Capacity 405 ug/dL (261-462)
[2025-08-30 18:29] LABS: Hematocrit 30.3 % (42.0-52.0); Hemoglobin 7.8 g/dL (14.1-18.0); Immature Granulocytes % 1.3 %; Mean Corpuscular HGB Conc 25.7 g/dL (31.8-35.4); Mean Corpuscular Hemoglobin 17.4 pg (27.0-31.2); Mean Corpuscular Volume 67.8 fl (80-94); Nucleated Red Blood Cells % 0 %; Platelet Count 421 K/mm3 (142-424); Red Blood Count 4.47 M/mm3 (4.60-6.20); Red Cell Distribution Width-SD 51.1 fL; White Blood Count 6.4 K/mm3 (4.8-10.8)
[2025-08-30 18:33] LABS: Alanine Aminotransferase 16 U/L (12-78); Albumin Level 4.2 g/dl (3.5-5.0); Albumin/Globulin Ratio 1.2 (1.1-1.8); Alkaline Phosphatase 83 U/L (38-126); Anion Gap 12.9 mEq/L (5-15); Aspartate Amino Transferase 21 U/L (17-59); Bilirubin,Total 0.3 mg/dl (0.2-1.3); Blood Urea Nitrogen 22 mg/dl (9-20); Calcium 9.4 mg/dl (8.4-10.2); Carbon Dioxide 24 mmol/L (22.0-30.0); Chloride 106 mmol/L (98-107); Cholesterol 183 mg/dl (140-200); Creatinine,Serum 1.70 mg/dl (0.66-1.25); Estimated Glomerular Filt Rate 40 ml/min (>60); GFR (African American) 49 ML/MIN (>60); Globulin 3.4 g/dL (1.3-3.2); Glucose 87 mg/dl (74-100); HDL Cholesterol 49 mg/dl (40-60); Iron 44 ug/dL (49-181); Potassium 4.9 mmoL/L (3.5-5.1); Sodium 138 mmol/L (136-145); Total Protein,Serum 7.6 g/dl (6.3-8.2); Triglycerides 114 mg/dl (30-150)
[2025-08-30 19:24] LABS: Vitamin B12 242 pg/mL (239-931)
[2025-08-31 12:06] LABS: Reticulocyte % (Auto) 1.7 % (0.9-3.2)
--- OUTSIDE RECORDS SUMMARY | 2025-08-31 13:46 | XMS_ITS | Clinical Summary ---
Author Organization [facility] Address [address] [place] [address] Care Team Providers Care Machine Inker Name Role Phone Miguel Remy MD Primary Care Provider [phone] Allergies Active Allergy Reactions Criticality Noted Date [...] Depressive disorder 02/12/2023 Sensorineural hearing loss 11/04/2022 Immunizations Immunization Administration Dates Next Due Fluzone [...] 08/25/2024 3:09 PM EST Plan of Treatment Health Maintenance Due Date Last Done Comments LIPID PANEL 1958 COVID-19 Vaccine (#1) 1963 Pneumococcal Vaccine 50+ (1 of 2 - PCV) 1977 TDAP/TD VACCINES (1 - Tdap) 1977 COLOGUARD 2003 COLON CANCER SCREENING 5 YEAR SIGMOIDOSCOPY 2003 COLONOSCOPY 2003 [address] CANCER SCREENING 2003 CT COLONOGRAPHY 2003 FECAL OCCULT BLOOD TEST 2003 FIT Testing (1 year) 2003 ZOSTER VACCINE (1 of 2) 2008 ANNUAL WELLNESS VISIT 05/20/2023 HEPATITIS C SCREENING 05/20/2023 AAA SCREEN ONCE 2023 INFLUENZA VACCINE 05/20/2025 Insurance MEDICAID [place] [facility] MEDICARE ADVANTAGE [facility] HMO NON PAR Care Teams Machine Inker Relationship Specialty Start Date End Date Miguel Remy MD [address] [place] [address] [place] [id number] PCP - General Family Medicine 05/20/23
--- OUTSIDE RECORDS SUMMARY | 2025-08-31 13:46 | XMS_ITS | Clinical Summary ---
Author Organization [facility] Address [address] [place] [address] Care Team Providers Care Relationship Manager Name Role Phone Unavailable Primary Care Provider [...]
== END 2025-08-30 23:59 | disposition home or self-care (01) ==
LOC: LAB.DROPOF 08-31 13:29
PROVIDERS: PCP Family Medicine; Visit Provider Family Medicine
DX: E78.5 Hyperlipidemia, unspecified (principal); I10 Essential (primary) hypertension; D64.9 Anemia, unspecified
CPT/HCPCS: 80053; 80061; 82607; 83540; 83550; 85025; 85044